=== PATIENT | male | born 1995 | race Two or more races ===

== ENCOUNTER 2017-05-06 13:11 | Emergency (ER) | payer OTHER ==
[2017-05-06 13:16] VITALS: RESP 18; TEMP 97.9; O2SAT 97
--- NOTE | 2017-05-06 14:16 | EDPHY ---
H & P Time Seen by Provider: 05/06/17 13:36 HPI/ROS: CHIEF COMPLAINT: Cough HISTORY OF PRESENT ILLNESS: 21-year-old male presents with cough and runny nose. Onset of runny nose 2 days ago. Associated with a frequent cough, specially at night. No associated sore throat, myalgias or fever. Multiple ill contacts. REVIEW OF SYSTEMS: Constitutional: No fever, no chills Eyes: No drainage ENT: No sore throat Respiratory: no shortness of breath Cardiac: No chest pain GI: No vomiting or diarrhea Skin: No rash Neurological: No headache Past Medical/Surgical History: Denies Social History: [employer] student Smoking Status: Never smoked Physical Exam: General Appearance: Alert, pleasant Eyes: Pupils equal and round, no conjunctival injection ENT, Mouth: Mucous membranes moist, no pharyngeal erythema Neck: Normal inspection Respiratory: Lungs are clear to auscultation Cardiovascular: Regular rate and rhythm Neurological: A&O, nonfocal, normal gait Skin: Warm and dry, no rash Psychiatric: Mood and affect normal Constitutional: Initial Vital Signs Temperature (C) 36.6 C 05/06/17 13:12 Heart Rate 87 05/06/17 13:12 Respiratory Rate 18 05/06/17 13:12 Blood Pressure 117/84 H 05/06/17 13:12 O2 Sat (%) 97 05/06/17 13:12 O2 Delivery Mode Room Air Allergies/Adverse Reactions: No Known Allergies Allergy (Unverified 05/06/17 13:16) Home Medications: Medication Instructions Recorded NK [No Known Home Meds] 05/06/17 Medical Decision Making ED Course/Re-evaluation: This patient presents with an upper respiratory infection. To clarify the triage nursing notes, the patient states that he had a fever a year ago, but no fever associated with this illness. Departure - Departure Disposition: Home, Routine, Self-Care Clinical Impression: Upper respiratory infection, viral Condition: Good Instructions: Upper Respiratory Infection (ED) Additional Instructions: Drink plenty of fluids. Take NyQuil at night to help you sleep. Use Delsym during the day as needed for cough. Stand Alone Forms: Statement of Treatment
[2017-05-06 14:30] VITALS: BP 109/67; PULSE 82
== END 2017-05-06 14:30 | disposition home or self-care (01) ==
DX: J06.9 Acute upper respiratory infection, unspecified (principal)

== ENCOUNTER 2017-06-23 00:23 | Emergency (ER) | payer OTHER ==
[2017-06-23 00:28] VITALS: RESP 16
--- NOTE | 2017-06-23 00:46 | EDPHY ---
General - History Smoking Status: Never smoked Narrative: CHIEF COMPLAINT: Finger tip injury HISTORY OF PRESENT ILLNESS: Patient complains of finger tip laceration. This is the left ring finger. It happened less than 1 hour ago. 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 The machine was not on at the time. He sustained a laceration to the distal phalanx of the left ring finger primarily volar aspect. Moderate bleeding stopped with pressure. Some numbness right at the site. No difficulty bending or straightening the finger. Moderately painful when moving it. It is minimally painful at rest. No injury elsewhere. Tetanus is up-to-date. No other associated complaints or modifying factors. TIME OF INJURY: Less than 1 hour prior to arrival TETANUS STATUS: Up-to-date MEDICAL/SURGICAL/SOCIAL HISTORY: No medical diagnoses. Currently student at [employer]. Originally from [facility] REVIEW OF SYSTEMS: Ten systems reviewed and are negative unless otherwise noted in the HPI EXAMINATION General Appearance: Alert, no distress Head: normocephalic, atraumatic Cardiovascular: Pulses normal throughout. Symmetric radial pulses. Brisk cap refill Neurological: A&O, sensory symmetric, strength symmetric Skin: Warm and dry, no rash. Finger tip laceration, left ring finger distal phalanx. 1 cm diameter tissue flap. Nonviable tissue flap. Minimal bleeding. No foreign body. No damage to the nail. Extremities: Tenderness of the left ring finger distal phalanx. Range of motion intact with full flexion extension. DIFFERENTIAL DIAGNOSES: Including but not limited to laceration, avulsion, laceration with complication MDM: 12:45 a.m. Left ring finger finger tip laceration. Difficult to ascertain the extent until the wound is cleaned. I have administered a digital block. Proceed with irrigation re-evaluation. Tetanus up-to-date. 12:57 a.m. Finger tip laceration with avulsion and a nonviable skin flap. No foreign body. No tendon injury. This was removed with minimal excisional debridement. There was no way that this tissue flap would survive suture repair, thus it was removed. The wound was minimally bleeding. This will be dressed with bacitracin, Xeroform tube gauze. Dressing to be left in place for 2 days. Follow up with hand surgeon or wound care for definitive care. ED precautions as discussed. He is comfortable this plan. PROCEDURE: Digital Block Indication: Finger laceration Consent: Verbal Location: Left ring finger Anesthesia: Lidocaine 1% plain, 0.25% Marcaine plain, 5mL Description: Base of the finger was prepped. The above was infused without difficulty. Tolerated well. Good anesthesia. Complications: None Procedure: Excisional debridement Indication: Finger tip laceration/avulsion Consent: Verbal Location: Left ring finger, distal phalanx Anesthesia. Digital block Description: After digital block, the finger tip was evaluated. There was a nonviable skin flap measuring 1 cm in diameter. No blood to the tissue present. Too thin to be suture repaired. This was removed with minimal excisional debridement. Tolerated well with no complications. EBL: Minimal ED Precautions: Worsening pain. Erythema, edema, cyanosis, pallor, paresthesia or anesthesia. (Austin Newby) Medical Decision Making: PHYSICIAN DOCUMENTATION: The patient was evaluated and managed by the Physician Air Traffic Control Equipment Repairer. My co- signature indicates that I have reviewed this chart and I agree with the findings and plan of care as documented. I am the secondary supervising physician. (Katrina Serna) - Objective Vital Signs: Initial Vital Signs Temperature (C) 98.4 F 06/23/17 00:25 Heart Rate 77 06/23/17 00:25 Respiratory Rate 16 06/23/17 00:25 Blood Pressure 128/89 H 06/23/17 00:25 O2 Sat (%) 100 06/23/17 00:25 O2 Delivery Mode Room Air Allergies/Adverse Reactions: No Known Allergies Allergy (Verified 06/23/17 00:28) Home Medications: Medication Instructions Recorded NK [No Known Home Meds] 05/06/17 Departure - Departure Disposition: Home, Routine, Self-Care Clinical Impression: Finger laceration Qualifiers: Encounter type: initial encounter Finger: ring finger Damage to nail status: without damage Foreign body presence: without foreign body Laterality: left Qualified Code(s): S61.215A - Laceration without foreign body of left ring finger without damage to nail, initial encounter Avulsion of fingertip Qualifiers: Encounter type: initial encounter Qualified Code(s): S61.209A - Unspecified open wound of unspecified finger without damage to nail, initial encounter Condition: Good Instructions: Finger Laceration (ED), Skin Avulsion (ED) Additional Instructions: 1. Keep the dressing in place for 2 days 2. Once the dressing is removed, apply bacitracin once daily and recover the wound 3. Follow up with hand surgeon or wound care for definitive care 4. ED precautions for signs of infection as discussed should they develop Referrals: Rio Post MD [Medical Doctor] - As per Instructions [facility] [Clinic] - As per Instructions Stand Alone Forms: School Excuse
[2017-06-23 01:38] VITALS: BP 127/86; PULSE 62; TEMP 97.7; O2SAT 96
== END 2017-06-23 01:38 | disposition home or self-care (01) ==
PROC: 3E0T3BZ Introduction of Anesthetic Agent into Peripheral Nerves and Plexi, Percutaneous Approach (ICD-10-PCS; principal; 2017-06-23)
DX: S61.215A Laceration without foreign body of left ring finger without damage to nail, initial encounter (principal); S61.205A Unspecified open wound of left ring finger without damage to nail, initial encounter; W26.8XXA Contact with other sharp object(s), not elsewhere classified, initial encounter; Y99.8 Other external cause status; Y93.89 Activity, other specified

== ENCOUNTER 2017-11-10 16:12 | Emergency (ER) | payer OTHER ==
[2017-11-10 16:22] VITALS: BP 125/83; PULSE 71; RESP 16; TEMP 98.1; O2SAT 97
--- NOTE | 2017-11-10 17:06 | EDPHY ---
H & P Time Seen by Provider: 11/10/17 17:06 HPI/ROS: Chief complaint. Foot pain HPI. Right great toe pain for 3-4 days. No injury. The toenail feels like his grown into the side of his toe. He has pain and swelling to the lateral aspect of the great toenail. When he pushes on it pus comes out. No other complaints. No similar symptoms previously. ROS Constitutional. no fever/chills, no weakness Eyes. no problems with vision ENT. no sore throat, no nasal drainage Cardiovascular. no chest pain Respiratory. no shortness of breath, no cough Abdominal. no abdominal pain, no nausea/vomiting, no diarrhea . no problems urinating MS. Right great toe pain Skin. no rash Lymph. no swollen glands Neuro. no headache, no dizziness, no difficulty walking or with speech Past Medical/Surgical History: Healthy Social History: Single, nonsmoker, no alcohol Smoking Status: Never smoked Physical Exam: General Appearance: Alert well-developed male mild distress vital signs stable Eyes: Pupils equal and round no pallor or injection. ENT, Mouth: Mucous membranes are moist. Respiratory: There are no retractions, lungs are clear to auscultation. Cardiovascular: Regular rate and rhythm. Gastrointestinal: Abdomen is soft and nontender, no masses, bowel sounds normal. Neurological: Awake and alert, sensory and motor exams grossly normal. Skin: Warm and dry, no rashes. Musculoskeletal: Neck is supple nontender. Extremities symmetrical, full range of motion. Right great toe shows swelling to the cuticle and skin on the lateral aspect of the great toenail. No lymphangitis. Psychiatric: Patient is oriented X 3, there is no agitation. Constitutional: Initial Vital Signs Temperature (C) 36.7 C 11/10/17 16:19 Heart Rate 71 11/10/17 16:19 Respiratory Rate 16 11/10/17 16:19 Blood Pressure 125/83 H 11/10/17 16:19 O2 Sat (%) 97 11/10/17 16:19 O2 Delivery Mode Room Air Allergies/Adverse Reactions: No Known Allergies Allergy (Verified 11/10/17 16:19) Home Medications: Medication Instructions Recorded NK [No Known Home Meds] 05/06/17 Medical Decision Making Procedures: 0.5% Marcaine without epinephrine is infiltrated as a digital block. Good anesthesia is obtained. The lateral aspect of the toenail is incised. The pocket in indurated tissue is probed and irrigated with saline. The wound is bandaged. Patient toleratesdure well ED Course/Re-evaluation: On re-evaluation patient is stable. He and I discussed treatment plan including criteria for return importance of follow-up and further evaluation. He expresses understanding and agreement Differential Diagnosis: This appears to be ingrown toenail. Them local induration and pocket of infection. No lymphangitis. I do not think he requires antibiotics. Departure - Departure Disposition: Home, Routine, Self-Care Clinical Impression: Ingrown toenail of right foot with infection Condition: Good Instructions: Ingrown Nail (ED) Additional Instructions: Keep the foot clean and dry. Activity as tolerated. Antibiotic ointment twice daily next 4 days to the area where we cut out the nail or toe. Return for signs of infection. Referrals: NONE *PRIMARY CARE P,. [Primary Care Provider] - As per Instructions Tabitha Wise [Doctor of Podiatric Medicine] - 5-7 days, if not improved
== END 2017-11-10 18:26 | disposition home or self-care (01) ==
PROC: 0HBRXZZ Excision of Toe Nail, External Approach (ICD-10-PCS; principal; 2017-11-10)
DX: L60.0 Ingrowing nail (principal)

== ENCOUNTER 2017-11-18 12:58 | Emergency (ER) | payer OTHER ==
--- NOTE | 2017-11-18 13:50 | EDPHY ---
H & P Stated Complaint: L ankle injury Time Seen by Provider: 11/18/17 13:50 HPI/ROS: Chief Complaint: Left ankle pain HPI: The patient presents the ED with complaints of left lateral ankle pain after he rolled his foot while playing soccer yesterday. The patient has been unable to ambulate since the injury. He denies any knee pain, hip pain or back pain. He denies associated numbness or weakness. He has moderate pain with attempted movement. REVIEW OF SYSTEMS: Neuro: no headache, numbness, weakness Musculoskeletal: as above Skin: no abrasion or lacerations Source: Patient Exam Limitations: No limitations - Personal History Current Tetanus/Diphtheria Vaccine: Unsure Current Tetanus Diphtheria and Acellular Pertussis (TDAP): Unsure - Medical/Surgical History Hx Asthma: Yes Hx Chronic Respiratory Disease: No Hx Diabetes: No Hx Cardiac Disease: No Hx Renal Disease: No Hx Cirrhosis: No Hx Alcoholism: No Hx HIV/AIDS: No Hx Splenectomy or Spleen Trauma: No Other PMH: Asthma - Social History Smoking Status: Current some day smoker - Physical Exam Exam: General appearance: alert no distress Left ankle: There is swelling and tenderness over the lateral malleolus. Ankle joint is stable and there is no tenderness over the Achilles tendon. The foot is nontender without swelling. Neurologic exam: The patient has normal sensation and motor function distal to the injury. Vascular exam: Normal pulses and capillary refill in the foot DIFFERENTIAL DIAGNOSIS: After history and physical exam differential diagnosis was considered for ankle injury including sprain, fracture, dislocation and soft tissue injury. Constitutional: Initial Vital Signs Temperature (C) 36.8 C 11/18/17 13:02 Heart Rate 73 11/18/17 13:02 Respiratory Rate 16 11/18/17 13:02 Blood Pressure 116/67 11/18/17 13:02 O2 Sat (%) 97 11/18/17 13:02 O2 Delivery Mode Room Air Allergies/Adverse Reactions: No Known Allergies Allergy (Verified 11/18/17 13:01) Home Medications: Medication Instructions Recorded NK [No Known Home Meds] 05/06/17 Medical Decision Making - Diagnostics Imaging Results: Left ankle x-ray series: Images reviewed by myself, formal interpretation by Radiology pending. My impression: Soft tissue swelling, negative for acute fracture ED Course/Re-evaluation: The patient presents to the ED for evaluation of left ankle pain following a twisting injury yesterday. His x-ray demonstrates no evidence of an obvious fracture by my interpretation. The patient will be placed in a Kuo boot and given crutches. The patient is advised to follow up with our on-call orthopedic surgeon for any persistent pain, swelling or instability. Departure - Departure Disposition: Home, Routine, Self-Care Clinical Impression: Ankle sprain Qualifiers: Encounter type: initial encounter Involved ligament of ankle: tibiofibular ligament Laterality: left Qualified Code(s): S93.432A - Sprain of tibiofibular ligament of left ankle, initial encounter Condition: Good Instructions: Ankle Sprain (DC) Additional Instructions: 1. Your x-ray demonstrates no evidence of an obvious fracture. 2. Take Ibuprofen or Motrin 600 mg by mouth three times a day. 3. Weight bear as tolerated. Splint and crutches as needed for discomfort. 4. Please follow up with the orthopedic surgeon you have been referred to for any pain, swelling or instability which persists past 7-10 days as this may be the sign of an injury not noted on the x-ray today. Referrals: Jean Claude Ramos MD [Medical Doctor] - As per Instructions
[2017-11-18 14:35] VITALS: BP 115/72
== END 2017-11-18 14:53 | disposition home or self-care (01) ==
DX: S93.432A Sprain of tibiofibular ligament of left ankle, initial encounter (principal); J45.909 Unspecified asthma, uncomplicated; F17.200 Nicotine dependence, unspecified, uncomplicated; X58.XXXA Exposure to other specified factors, initial encounter; Y99.8 Other external cause status; Y93.66 Activity, soccer
CPT/HCPCS: L4386

== ENCOUNTER 2018-06-16 16:16 | Emergency (ER) | payer OTHER ==
--- NOTE | 2018-06-16 18:13 | EDPHY ---
H & P Stated Complaint: COUGH/PHLEGM/DYSPNEA WITH PAIN IN CHEST YESTERDAY Time Seen by Provider: 06/16/18 18:12 HPI/ROS: HPI: This is a 22-year-old male who presents with Chief Complaint: COUGH/PHLEGM/DYSPNEA WITH PAIN IN CHEST YESTERDAY Location: Chest Quality: Cough, phlegm Duration: 4-5 days Signs and Symptoms: + subjective low-grade fever, no nausea, no vomiting, no diarrhea, no urinary symptoms, no chest pain, no shortness of breath, no wheezing, + productive cough, no sore throat, no neck stiffness, no joint pain, no swollen glands, no ear pain, no rash, + body aches Timing: Acute, worse at night Severity: Moderate Context: Patient has a history of asthma, is a student at [employer], presents with complaints of 4-5 day history of productive cough of green sputum that is worse at night accompanied by low-grade subjective fevers and body aches. Patient reports that while coughing he has a pain in the center of his chest. Uses his albuterol inhaler yesterday with mild relief of wheezing and shortness of breath. Received influenza vaccine this year. Modifying Factors: See above Comment: ROS: A comprehensive 10 system review of systems is otherwise negative aside from elements mentioned in the history of present illness. MEDICAL/SURGICAL/SOCIAL HISTORY: Medical history: Asthma Surgical history: Denies Social history: Light smoker. Family history noncontributory. CONSTITUTIONAL: Polite, young adult Reform male, awake and alert, no obvious distress HEENT: Atraumatic and normocephalic, PERRL, EOMI. Nares patent; no rhinorrhea; no nasal mucosal edema. Tympanic membranes clear. Oropharynx clear, no exudate and moist pink mucosa. Airway patent. No lymphadenopathy. No meningismus. Cardiovascular: Normal S1/S2, regular rate, regular rhythm, without murmur rub or gallop. PULMONARY/CHEST: Symmetrical and nontender. Clear to auscultation bilaterally. Good air movement. No accessory muscle usage. ABDOMEN: Soft, nondistended, nontender, no rebound, no guarding, no peritoneal signs, no masses or organomegaly. No CVAT. EXTREMITIES: 2/2 pulses, strength 5/5, no deformities, no clubbing, no cyanosis or edema. NEUROLOGICAL: no focal neuro deficits. GCS 15. SKIN: Warm and dry, no erythema. no rash. Good capillary refill. Source: Patient Exam Limitations: No limitations - Personal History Current Tetanus Diphtheria and Acellular Pertussis (TDAP): Yes - Medical/Surgical History Hx Asthma: Yes Hx Chronic Respiratory Disease: No Hx Diabetes: No Hx Cardiac Disease: No Hx Renal Disease: No Hx Cirrhosis: No Hx Alcoholism: No Hx HIV/AIDS: No Hx Splenectomy or Spleen Trauma: No Other PMH: Asthma - Social History Smoking Status: Light smoker Constitutional: Initial Vital Signs Temperature (C) 37.1 C 06/16/18 16:26 Heart Rate 83 06/16/18 16:26 Respiratory Rate 18 06/16/18 16:26 Blood Pressure 111/76 06/16/18 16:26 O2 Sat (%) 96 06/16/18 16:26 O2 Delivery Mode Room Air Allergies/Adverse Reactions: No Known Allergies Allergy (Verified 06/16/18 16:26) Home Medications: Medication Instructions Recorded Azithromycin [Zithromax] 250 mg PO DAILY #6 tab 06/16/18 Benzonatate [Tessalon Pearles (RX)] 100 mg PO Q6 PRN #12 cap 06/16/18 Medical Decision Making ED Course/Re-evaluation: Vital signs reviewed upon arrival in stable. No signs of hypoxia, respiratory distress. Lung exam is essentially clear. No indication for chest x-ray at this time. Wells criteria is low for pulmonary embolism. Due to history of asthma; will treat for bronchitis with azithromycin and Tessalon Perles. No indication for steroid burst. Patient reports that he already has an albuterol inhaler and does not need a refill. This patient was seen under the supervision of my secondary supervising physician. I evaluated care for this patient independently. Discussed this patient with Dr. Day. Differential Diagnosis: Differential diagnosis includes but is not limited to upper respiratory infection, viral syndrome, bronchitis, pneumonia, asthma exacerbation. Departure - Departure Disposition: Home, Routine, Self-Care Clinical Impression: Bronchitis, asthmatic Qualifiers: Asthma severity: moderate Asthma persistence: persistent Asthma complication type: uncomplicated Qualified Code(s): J45.40 - Moderate persistent asthma, uncomplicated Condition: Good Instructions: Asthma (ED), Acute Bronchitis (ED) Additional Instructions: Take Tylenol 650 mg every 4 hours and/or Ibuprofen 600 mg every 8 hours with food as needed for pain/fever. Take antibiotics as directed. Do not skip a dose. Use Tessalon Perles every 6 hr as needed for moderate cough. Rest as much as possible until you are feeling better. Consume a minimum of 8-10 glasses of water or electrolyte fluid replacement drinks that include Gatorade, Powerade, Pedialyte. Use albuterol inhaler every 4-6 hours as needed for wheezing, shortness of breath. Referrals: Deirdre Wlaton MD [Medical Doctor] - As per Instructions Stand Alone Forms: School Excuse Prescriptions: Azithromycin [Zithromax] 250 mg PO DAILY #6 tab Benzonatate [Tessalon Pearles (RX)] 100 mg PO Q6 PRN #12 cap PRN Reason: Cough, Moderate
[2018-06-16 18:34] VITALS: BP 136/82
== END 2018-06-16 18:33 | disposition home or self-care (01) ==
DX: J40 Bronchitis, not specified as acute or chronic (principal); J45.40 Moderate persistent asthma, uncomplicated; F17.200 Nicotine dependence, unspecified, uncomplicated